=== PATIENT | male | born 1985 | race Caucasian/White ===

== ENCOUNTER 2018-03-12 02:24 | Observation (INO) ==
[2018-03-12] MEDS ORDERED: Bisacodyl 10 MG Supp RECTAL PRN (09:47)
[2018-03-12] MEDS ORDERED: Acetaminophen 325 MG Tablet PO PRN (09:47)
[2018-03-12] MEDS: Sod Chloride 0.9% Inj 1,000 ML IV.CONT SCH ×4 (11:05→21:47)
[2018-03-12] MEDS ORDERED: Divalproex 500 MG DR Tablet PO SCH ×3 (11:30→21:00)
--- NOTE | 2018-03-12 11:32 | P.HPIM ---
History of Present Illness Primary Care Physician: Loree Alexandra Chief Complaint: Nausea vomiting History of Present Illness: 32-year-old gentleman with history of renal stones developed acute intractable nausea vomiting associated with bilateral flank pain. He was seen and evaluated at the emergency room and [place] where he was found to have bilateral hydronephrosis and obstructing ureteral calculi of both ureters 3-4 mm in size. Patient was transferred to our ER for admission. Patient's mother states he has had stones in the past. Denies any recent fever chills just the nausea and vomiting, mild flank pain. Otherwise has been in his normal state of health. Denies gross hematuria or difficulty voiding. 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 FAMhx: Mom currently has cancer COUNTS INCLUDE 234 BEDS AT THE [facility] Medical History Medical History Kidney stones (Acute) Raynaud disease (Acute) Social History Social History Substance History: No History of Abuse Second Hand Smoke Exposure: No Smoking Status: Never smoker How Often Do You Have a Drink Containing Alcohol: Never Recent Travel in [place] within the Last 8 Weeks: No Recent Out of Country Travel within the Last 8 Weeks: No Medications and Allergies Allergies Allergy/AdvReac Type Severity Reaction Status Date / Time Sulfa (Sulfonamide Allergy Anaphylaxis Verified 03/12/18 02:35 Antibiotics) codeine AdvReac Rash Verified 03/12/18 02:35 Home Medications Medication Instructions Recorded Confirmed Type Saccharomyces boulardii [Florastor] 250 mg PO DAILY 03/12/18 03/12/18 History Vitamin D3 1,000 units PO DAILY 03/12/18 03/12/18 History cetirizine [Zyrtec] 10 mg PO DAILY 03/12/18 03/12/18 History divalproex [Depakote] 1,500 mg PO DAILY 03/12/18 03/12/18 History escitalopram oxalate [Lexapro] 10 mg PO DAILY 03/12/18 03/12/18 History lansoprazole [Prevacid] 15 mg PO DAILY 03/12/18 03/12/18 History topiramate [Topamax] 100 mg PO DAILY 03/12/18 03/12/18 History Active Medications: Active Medications Acetaminophen (Tylenol) 650 mg PO Q4H PRN PRN Reason: Temp > 100.4 Al Hydroxide/Mg Hydroxide (Milk Of Magnesia Liq) 30 ml PO Q12H PRN PRN Reason: Mild Constipation Bisacodyl (Dulcolax Supp) 10 mg RECTAL DAILY PRN PRN Reason: SEVERE CONSITIPATION Cetirizine HCl (Zyrtec) 10 mg PO DAILY [facility] Divalproex Sodium (Depakote Dr) 1,500 mg PO DAILY [facility] Escitalopram Oxalate (Lexapro) 10 mg PO DAILY [facility] Sodium Chloride (Ns Inj) 1,000 mls @ 100 mls/hr IV.CONT .Q10H [facility] Last Admin: 03/12/18 11:05 Dose: 100 mls/hr Lactulose (Lactulose Liq) 30 ml PO DAILY PRN PRN Reason: SEVERE CONSITIPATION Ondansetron HCl (Zofran Inj) 4 mg IV.PUSH Q6H PRN PRN Reason: NAUSEA OR VOMITING Pantoprazole Sodium (Protonix) 20 mg PO DAILY [facility] Senna/Docusate Sodium (Latosha-Colace) 1 tab PO BID [facility] Sennosides (Senokot) 17.2 mg PO Q12H PRN PRN Reason: Moderate Constipation Sodium Chloride (Ns Flush) 2 ml IV.FLUSH BID [facility] Sodium Chloride (Ns Flush) 2 ml IV.FLUSH PRN PRN PRN Reason: FLUSH AFTER USING IV ACCESS Topiramate (Topamax) 100 mg PO DAILY [facility] Vitamin D (Vitamin D3) 1,000 unit PO DAILY [facility] Physical Exam Vital signs: Last Vital Signs Temp 97.8 F 03/12/18 08:03 Pulse 87 03/12/18 08:03 Resp 18 03/12/18 08:03 BP 114/79 03/12/18 08:03 Pulse Ox 94 L 03/12/18 08:03 Intake & Output 03/10/18 03/11/18 03/12/18 03/13/18 06:59 06:59 06:59 06:59 Weight 123.377 kg GEN well-developed well-nourished 32-year-old white male awake alert oriented to person time and place, pleasant in no acute distress shy affect HEENT normocephalic atraumatic, Pupils equal reactive, 4 mm, sclerae anicteric , extraocular motion intact, mucosa is moist. posterior pharynx no exudate NECK supple no JVD trachea midline thyroid smooth not enlarged ANT CHEST WALL without mass or tenderness to palpation HEART S1-S2 regular without murmur gallops or clicks LUNGS clear to auscultation without wheeze rales or rhonchi , full symmetric expansion BACK exam is mild CVA tenderness or no mass ABDOMEN soft nondistended positive bowel sounds no guarding rebound rigidity, mild suprapubic tenderness LYMPH NODES no cervical, axillary or inguinal adenopathy noted EXTREMITIES no clubbing cyanosis or significant edema, peripheral pulses palpable +2 NEUROLOGIC cranial nerves II through XII appear grossly intact, strength is 4 out of 5 symmetrical no clonus or rigidity SKIN warm and dry with good turgor, no other rash or sores noted Caprini VTE Risk Assessment Caprini VTE Risk Assessment: No/Low Risk (score <= 1) Caprini Risk Assessment Model: Point Value = 1 Point Value = 2 Point Value = 3 Point Value = 5 Age 41-60 Minor surgery BMI > 25 kg/m2 Swollen legs Varicose veins or History of unexplained or recurrent spontaneous Oral contraceptives or hormone replacement Sepsis (< 1 month) Serious lung disease, including pneumonia (< 1 month) Abnormal pulmonary function Acute myocardial infarction Congestive heart failure (< 1 month) History of inflammatory bowel disease Medical patient at bed rest Age 61-74 Arthroscopic surgery Major open surgery (> 45 min) Laparoscopic surgery (> 45 min) Malignancy Confined to bed (> 72 hours) Immobilizing plaster cast Central venous access Age >= 75 History of VTE Family history of VTE Factor V Leiden Prothrombin [id number] Lupus anticoagulant Anticardiolipin antibodies Elevated serum homocysteine Heparin-induced thrombocytopenia Other congenital or acquired thrombophilia Stroke (< 1 month) Elective arthroplasty Hip, pelvis, or leg fracture Acute spinal cord injury (< 1 month) Prophylaxis Regimen: Total Risk Factor Score Risk Level Prophylaxis Regimen 0-1 Low Early ambulation 2 Moderate Order ONE of the following: *Sequential Compression Device (SCD) *Heparin 5000 units SQ BID 3-4 Higher Order ONE of the following medications: *Heparin 5000 units SQ TID *Enoxaparin/Lovenox 40 mg SQ daily (WT < 150 kg, CrCl > 30 mL/min) *Enoxaparin/Lovenox 30 mg SQ daily (WT < 150 kg, CrCl > 10-29 mL/min) *Enoxaparin/Lovenox 30 mg SQ BID (WT < 150 kg, CrCl > 30 mL/min) AND/OR *Sequential Compression Device (SCD) 5 or more Highest Order ONE of the following medications: *Heparin 5000 units SQ TID (Preferred with Epidurals) *Enoxaparin/Lovenox 40 mg SQ daily (WT < 150 kg, CrCl > 30 mL/min) *Enoxaparin/Lovenox 30 mg SQ daily (WT < 150 kg, CrCl > 10-29 mL/min) *Enoxaparin/Lovenox 30 mg SQ BID (WT < 150 kg, CrCl > 30 mL/min) AND *Sequential Compression Device (SCD) Assessment and Plan Plan INTRACTABLE NAUSEA VOMITING due to uti and hydronephrosis - continue supportive care BILATERAL HYDRONEPHROSIS due to bilateral ureteral lithiasis - cont fluids, monitor urinary output, cr, urology eval, pain control, flomax, strain urine, toradol prn COMPLICATED UTI due to renal lithiasis/obstructive uropathy - iv abx, fu cx EHLER DANLOS - stable SEIZURE DO - home meds stable AUTISM - stable RAYNAUDS SYNDROME - stable dvt prophylaxis - oob, scds dispo - pending urology eval H&P: Quality VTE Deep Vein Thrombosis/Pulmonary Embolism Present on Admission: No
[2018-03-12] MEDS ORDERED: Ketorolac Inj 30 MG/ML (IVP) Vial IV.PUSH PRN (11:34)
[2018-03-12] MEDS: Pantoprazole Sodium 20 MG DR Tablet PO SCH (12:26)
[2018-03-12] MEDS: Topiramate 100 MG Tablet PO SCH (13:07)
--- NOTE | 2018-03-12 19:35 | P.CONURO ---
History of Present Illness Service: Urology Consult date: 03/12/18 Reason for Consult: Nephrolithiasis Primary Care Provider: Loree Alexandra Chief Complaint: Nausea vomiting History of Present Illness: 32 yo well functioning Autistic male with history of Nephrolithiasis seen in consultation for bilateral nephrolithiasis. Patient began to experience severe abdominal pain last night which brought him to the ED. CT scan identified bilateral mid-ureteral stone each about 3-4mm in size, with mild hydronephrosis. Patient has not had any fevers, Renal function normal, however WBC elevated to 17. On exam today, patient is without pain, resting comfortably. He has had kidney stone in the past, treated in [place] with lithotripsy. Review of Systems All other systems reviewed negative except as stated in HPI [facility] - History History Provided By: Patient - Medical History Medical History: Medical History (Last Updated 03/12/18 @ 02:46 by Maribell Ash RN) Kidney stones Raynaud disease - Tobacco History Second Hand Smoke Exposure: No Smoking Status: Never smoker - Alcohol History How Often Do You Have a Drink Containing Alcohol: Never - Substance Use History Substance History: No History of Abuse - Travel History Recent Travel in the [facility] Within the Last 8 Weeks: No Recent Travel Out of the Country Within the Last 8 Weeks: No Medications and Allergies Active Medications: Active Medications Acetaminophen (Tylenol) 650 mg PO Q4H PRN PRN Reason: Temp > 100.4 Al Hydroxide/Mg Hydroxide (Milk Of Magnmichele Liq) 30 ml PO Q12H PRN PRN Reason: Mild Constipation Bisacodyl (Dulcolax Supp) 10 mg RECTAL DAILY PRN PRN Reason: SEVERE CONSITIPATION Cetirizine HCl (Zyrtec) 10 mg PO DAILY [facility] Divalproex Sodium (Depakote Dr) 1,500 mg PO DAILY [facility] Last Admin: 03/12/18 13:07 Dose: 500 mg Escitalopram Oxalate (Lexapro) 10 mg PO DAILY [facility] Sodium Chloride (Ns Inj) 1,000 mls @ 100 mls/hr IV.CONT .Q10H [facility] Last Admin: 03/12/18 11:05 Dose: 100 mls/hr Sodium Chloride (Ns Inj) 1,000 mls @ 100 mls/hr IV.CONT .Q10H [facility] Last Admin: 03/12/18 12:38 Dose: Not Given Ceftriaxone Sodium 1,000 mg/ (Sodium Chloride) 100 mls @ 200 mls/hr IV.SIG Q24H [facility] Last Infusion: 03/12/18 13:00 Dose: Infused Ketorolac Tromethamine (Toradol Inj) 30 mg IV.PUSH Q6H PRN PRN Reason: PAIN 1-10 OR TEMP > 100.4 F Stop: 03/17/18 11:33 Lactulose (Lactulose Liq) 30 ml PO DAILY PRN PRN Reason: SEVERE CONSITIPATION Ondansetron HCl (Zofran Inj) 4 mg IV.PUSH Q6H PRN PRN Reason: NAUSEA OR VOMITING Pantoprazole Sodium (Protonix) 20 mg PO DAILY [facility] Last Admin: 03/12/18 12:26 Dose: 20 mg Senna/Docusate Sodium (Latosha-Colace) 1 tab PO BID [facility] Sennosides (Senokot) 17.2 mg PO Q12H PRN PRN Reason: Moderate Constipation Sodium Chloride (Ns Flush) 2 ml IV.FLUSH BID [facility] Sodium Chloride (Ns Flush) 2 ml IV.FLUSH PRN PRN PRN Reason: FLUSH AFTER USING IV ACCESS Topiramate (Topamax) 100 mg PO DAILY [facility] Last Admin: 03/12/18 13:07 Dose: 100 mg Vitamin D (Vitamin D3) 1,000 unit PO DAILY [facility] Allergies Allergy/AdvReac Type Severity Reaction Status Date / Time Sulfa (Sulfonamide Allergy Anaphylaxis Verified 03/12/18 02:35 Antibiotics) codeine AdvReac Rash Verified 03/12/18 02:35 Home Medications Medication Instructions Recorded Confirmed Type Saccharomyces boulardii [Florastor] 250 mg PO DAILY 03/12/18 03/12/18 History Vitamin D3 1,000 units PO DAILY 03/12/18 03/12/18 History cetirizine [Zyrtec] 10 mg PO DAILY 03/12/18 03/12/18 History divalproex [Depakote] 1,500 mg PO DAILY 03/12/18 03/12/18 History escitalopram oxalate [Lexapro] 10 mg PO DAILY 03/12/18 03/12/18 History lansoprazole [Prevacid] 15 mg PO DAILY 03/12/18 03/12/18 History topiramate [Topamax] 100 mg PO DAILY 03/12/18 03/12/18 History Physical Exam Vital Signs - 24 hr 03/12/18 08:03 03/12/18 12:00 03/12/18 16:00 Temperature 97.8 F 98.7 F 98.1 F Pulse Rate 87 92 H 89 Respiratory Rate 18 16 16 Blood Pressure 114/79 121/73 121/78 Pulse Oximetry 94 L 94 L 94 L Physical Exam: GENERAL: This is a well-nourished, well-developed patient, in no apparent distress. SKIN: No rashes, ecchymoses or lesions. Cool and dry. HEAD: Atraumatic. Normocephalic. EYES: . Extraocular motions intact. No scleral icterus. No injection or drainage. ENT: Nose without bleeding, purulent drainage. Uvula midline. Airway patent. NECK: Trachea midline. No JVD or lymphadenopathy. CARDIOVASCULAR: Normal pulse RESPIRATORY: Nonlabored; Nonrebreather mask in place. GASTROINTESTINAL: Abdomen soft, non-tender, nondistended. MUSCULOSKELETAL: Extremities without clubbing, cyanosis, or edema. NEUROLOGICAL: Awake and alert. Motor and sensory grossly within normal limits. Normal speech. Lab results reviewed: Yes Personally reviewed images: Yes Imaging: Ct scan with bilateral nephrolithiasis and bilateral mild hydronephrosis Assessment and Plan - Assessment (1) Bilateral ureteral calculi Code(s): N20.1 - Calculus of ureter Status: Acute (2) Urinary tract infection Code(s): N39.0 - Urinary tract infection, site not specified Status: Acute (3) Bilateral hydronephrosis Code(s): N13.30 - Unspecified hydronephrosis Status: Acute - Plan Bilateral 3-4mm nephrolithiasis with mild bilateral hydronephrosis. No pain, normal renal function At this time, recommend trial of passage with Flomax and Toradol Monitor WBC, expect to improve overnight Patient may have regular diet Followup in clinic to review and consider intervention with bilateral stents vs lithotripsy Please call with questions
[2018-03-12] MEDS ORDERED: Aluminum/Magnesium/Simethacone Susp 30 ML UDC PO ONE (21:03)
[2018-03-12] MEDS: Senna/Docusate Sodium 8.6/50 MG Tablet PO SCH (21:47)
[2018-03-13 06:12] LABS: Baso % (Auto) 0.3 % (0.0-2.0); Eos % (Auto) 0.1 % (0.0-4.0); Hematocrit 39.3 % (39.0-51.0); Hemoglobin 14.1 gm/dL (13.0-17.0); Lymph # (Auto) 3.1 th/mm3 (1.0-4.8); Lymph % (Auto) 33.4 % (9.0-44.0); Mean Corpuscular HGB Conc 35.7 % (32.0-36.0); Mean Corpuscular Hemoglobin 32.4 pg (27.0-34.0); Mean Corpuscular Volume 90.7 fL (80.0-100.0); Mean Platelet Volume 7.6 fL (7.0-11.0); Mono # (Auto) 0.8 th/mm3 (0.0-0.9); Neut # (Auto) 5.5 th/mm3 (1.8-7.7); Neut % (Auto) 58.2 % (16.0-70.0); Platelet Count 134 th/mm3 (150-450); Red Blood Count 4.34 mil/mm3 (4.50-5.90); Red Cell Distribution Width 12.9 % (11.6-17.2); White Blood Count 9.4 th/mm3 (4.0-11.0)
[2018-03-13 06:30] LABS: Anion Gap 11 meq/L (5-15); Blood Urea Nitrogen 12 mg/dL (7-18); Calcium 8.5 mg/dL (8.5-10.1); Carbon Dioxide 22.3 meq/L (21.0-32.0); Chloride 112 meq/L (98-107); Glomerular Filtration Rate Greater Than 89 mL/min (>89); Glucose,Random 94 mg/dL (74-106); Potassium 3.8 meq/L (3.5-5.1); Sodium 145 meq/L (136-145)
[2018-03-13] MEDS: Sod Chloride 0.9% Inj 1,000 ML IV.CONT SCH ×2 (07:19→13:11)
[2018-03-13 07:46] VITALS: O2SAT 95
[2018-03-13] MEDS: Pantoprazole Sodium 20 MG DR Tablet PO SCH (08:58)
[2018-03-13] MEDS: Senna/Docusate Sodium 8.6/50 MG Tablet PO SCH (08:58)
[2018-03-13] MEDS ORDERED: Topiramate 100 MG Tablet PO SCH (09:00)
[2018-03-13] MEDS ORDERED: Divalproex 500 MG DR Tablet PO SCH (09:00)
[2018-03-13] MEDS: Topiramate 100 MG Tablet PO SCH (09:00)
[2018-03-13] MEDS ORDERED: Pantoprazole Sodium 20 MG DR Tablet PO SCH (09:00)
[2018-03-13] MEDS ORDERED: SACCHAROMYCES BOULARDII 250 MG PO SCH (09:00)
[2018-03-13 12:04] VITALS: BP 137/87; PULSE 101; RESP 18; TEMP 98.7
--- NOTE | 2018-03-13 13:45 | P.PN ---
Subjective Interval history: seen with father in the room no complains of abdominal pain, flank pain or dyruia voiding freely- no gross hematuria no fever or chills Physical Exam Vital signs: Vital Signs 03/12/18 16:00 03/12/18 20:00 03/13/18 00:00 Temperature 98.1 F 98.4 F 98.3 F Pulse Rate 89 90 84 Respiratory Rate 16 18 18 Blood Pressure 121/78 126/82 121/79 Pulse Oximetry 94 L 95 97 03/13/18 04:00 03/13/18 07:44 03/13/18 12:00 Temperature 98.2 F 98.8 F 98.7 F Pulse Rate 80 87 101 H Respiratory Rate 20 16 18 Blood Pressure 121/79 124/90 137/87 Pulse Oximetry 98 95 95 Intake & Output 03/12/18 03/13/18 03/13/18 18:59 06:59 18:59 Intake Total 580 / 580 1000 / 1000 1000 / 1000 Balance 580 / 580 1000 / 1000 1000 / 1000 Weight 123.377 kg Intake: IV 100 / 100 1000 / 1000 1000 / 1000 NS Inj 1,000 ML @ 100 mls/hr IV 1000 / 1000 1000 / 1000 .CONT .Q10H [facility] Rx#:[id number] Rocephin Inj 1,000 MG In NS Inj 100 / 100 100 ML @ 200 mls/hr IV.SIG Q24H [facility] Rx#:[id number] Oral 480 / 480 Other: # Voids 2 Weight On Admission 123.77 kg Narrative: awake and aelrt, childlike in demeanor anictric neck supple lungs- clear regular rhythm abdmen soft, nontender no CVA tenderness extremities no edema Results - Labs CBC & Chem 7: 03/13/18 05:44 03/13/18 05:44 Laboratory Results - last 24 hr 03/13/18 03/13/18 05:44 05:44 WBC 9.4 RBC 4.34 L Hgb 14.1 Hct 39.3 MCV 90.7 MCH 32.4 MCHC 35.7 RDW 12.9 Plt Count 134 L MPV 7.6 Neut % (Auto) 58.2 Lymph % (Auto) 33.4 Carbon % (Auto) 8.0 Eos % (Auto) 0.1 Baso % (Auto) 0.3 Neut # (Auto) 5.5 Lymph # (Auto) 3.1 Carbon # (Auto) 0.8 Eos # (Auto) 0.0 Baso # (Auto) 0.0 WBC Differential . Differential Comment Auto diff final Sodium 145 Potassium 3.8 D Chloride 112 H Carbon Dioxide 22.3 Anion Gap 11 BUN 12 Creatinine 0.83 Estimated GFR Greater than 89 Random Glucose 94 Calcium 8.5 Assessment and Plan - Plan 32 years old male INTRACTABLE NAUSEA VOMITING due to uti and hydronephrosis -N/V rsolved BILATERAL HYDRONEPHROSIS due to bilateral ureteral lithiasis - - urology eval- cleared for DC- OP ff up - to determine stent vs lithothripsy - will DC with flomax - d/w father- to strain urine and send for stone analysis though PCP Pyuria due to renal lithiasis/obstructive uropathy -- -cultures negative - WBC improved- afebrile - received 2 doses of Rocephin - will not DC on any antibiotics - adequate hydration EHLER DANLOS - stable SEIZURE DO - home meds stable AUTISM - stable RAYNAUDS SYNDROME - stable dvt prophylaxis - oob, scds home today OP ffup with PCP and Urology
== END 2018-03-13 15:05 | disposition home or self-care (01) ==
LOC: NEPGCP 02:24 → NEDDLT 02:24
PROVIDERS: ADMIT Internal Medicine; ATTEND Internal Medicine
CPT/HCPCS: 74176; 80048; 80053; 81001; 83690; 83735; 84550; 85025; 87086; 90765; 90775; 96361; 96365; 96375; 96376; 99285; G0378; J0696; J1885; J2405; J7030